=== PATIENT | male | born 1940 | race Hispanic/Latino ===

== ENCOUNTER 2018-10-14 17:51 | Emergency (ER) | payer MEDICARE ==
[2018-10-14 18:06] VITALS: TEMP 98.1; O2SAT 100; BMI 25.4
--- NOTE | 2018-10-14 18:48 | ED PDOC ---
Arrival/HPI - General Chief Complaint: High Blood Pressure Time Seen by Provider: 10/14/18 18:17 Historian: Patient - History of Present Illness Narrative History of Present Illness (Text): 10/14/18 18:43 78-year-old male with a history of hypertension presents today complaining of hypertension and low heart rate for the past 2 weeks. Patient states that 2 weeks ago he spoke with his doctor stating that he had been checking his pulse rate and it had been low. Patient states that the primary care physician told him to lower his metoprolol 50 mg to 25 mg. Patient states he tried that for a few days and did not notice an improvement so he decided to stop his metoprolol altogether. Patient states he is still taking his losartan. Patient states he finds that his blood pressure is low in the morning and gradually increases throughout the day. Patient denies chest pain or shortness of breath. He denies fevers or chills. Patient denies dizziness or weakness but states that for the past 2 months at times he has some slight lightheadedness when he goes from sitting to standing position. Patient denies nausea vomiting diarrhea or constipation. No abdominal pain. No back pain. Patient denies numbness weakness or tingling in the extremities. Patient presents today due to his concern of hypertension. Past Medical History - Provider Review Nursing Documentation Reviewed: Yes - Travel History Have you recently traveled outside [place] w/in the past 3 mons?: No - Infectious Disease Hx of Infectious Diseases: None - Cardiac Hx Cardiac Disorders: Yes Hx Hypertension: Yes - Pulmonary Hx Respiratory Disorders: No - Renal Hx Renal Disorder: No - Genitourinary/Gynecological Hx Genitourinary Disorders: No - Psychiatric Hx Psychophysiologic Disorder: No Hx Substance Use: No - Anesthesia Hx Anesthesia: No Family/Social History - Physician Review Nursing Documentation Reviewed: Yes Family/Social History: Unknown Family HX Smoking Status: Unknown If Ever Smoked Hx Alcohol Use: No Hx Substance Use: No Allergies/Home Meds Allergies/Adverse Reactions: Allergies No Known Allergies Allergy (Verified 10/14/18 18:16) Home Medications: Home Meds Medication Instructions Recorded Confirmed Hctz 0 mg PO DAILY 10/14/18 Losartan [Cozaar] 100 mg PO DAILY 10/14/18 10/14/18 Review of Systems - Review of Systems Constitutional: absent: Fatigue, Fevers ENT: absent: Sore Throat, Epistaxis Respiratory: absent: SOB, Cough Cardiovascular: absent: Chest Pain, Palpitations Gastrointestinal: absent: Abdominal Pain, Constipation, Diarrhea, Nausea, Vomiting Genitourinary Male: absent: Dysuria, Frequency, Hematuria Musculoskeletal: absent: Arthralgias, Back Pain, Neck Pain Skin: absent: Rash, Pruritis Neurological: absent: Headache, Dizziness Psychiatric: absent: Anxiety, Depression, Suicidal Ideation Physical Exam Vital Signs Reviewed: Yes Vital Signs Temp Pulse Resp BP Pulse Ox 10/14/18 18:06 98.1 F 66 18 163/91 H 100 Temperature: Afebrile Blood Pressure: Hypertensive Pulse: Regular Respiratory Rate: Normal Appearance: Positive for: Well-Appearing, Non-Toxic, Comfortable Pain Distress: None Mental Status: Positive for: Alert and Oriented X 3 - Systems Exam Head: Present: Atraumatic Mouth: Present: Moist Mucous Membranes Neck: Present: Normal Range of Motion Respiratory/Chest: Present: Clear to Auscultation, Good Air Exchange. No: Respiratory Distress, Accessory Muscle Use Cardiovascular: Present: Regular Rate and Rhythm Abdomen: No: Tenderness, Distention, Rebound, Guarding Back: Present: Normal Inspection Upper Extremity: Present: Normal ROM Lower Extremity: Present: Normal Inspection, Normal ROM, Neurovascularly Intact, Capillary Refill < 2 s. No: Edema, Tenderness, Swelling, Erythema, Deformity, Temperature Abnormalties Neurological: Present: GCS=15, Speech Normal Skin: Present: Warm, Dry, Normal Color. No: Rashes Psychiatric: Present: Alert, Oriented x 3 Medical Decision Making ED Course and Treatment: 10/14/18 18:46 78-year-old male with a history of hypertension presenting with concerns for hypertension and low heart rate. Denies chest pain shortness of breath dizziness weakness abdominal pain nausea vomiting. Patient denies any complaints at present time CBC wnl CMP wnl Troponin wnl EKG: Sinus rhythm with PVCs at 69 bpm incomplete right bundle branch block no ST elevations cxr; wnl pt reassessment; pt resting comfortably no complaints. bp; 158/88 hr; 69 I discussed all results in depth with the patient and advised follow-up with a primary care physician tomorrow. Advised follow-up with the windows application administrator within the next 2 days. Advised immediate return if the patient develops chest pain dizziness weakness nausea vomiting back pain headaches or if any concerning symptoms develop Patient verbalizes understanding of discharge instructions and need for immediate followup. All aspects of this case were discussed the attending of record. impression: HTN Follow up with the primary care physician tomorrow follow up with the Bakery Assistant within the next 2 days. return immediately if symptoms worsen,persist or if new symptoms develop. 10/14/18 19:47 - RAD Interpretation Radiology Orders: 10/14/18 18:34 CHEST PORTABLE [RAD] Stat Disposition/Present on Arrival - Present on Arrival Any Indicators Present on Arrival: No History of DVT/PE: No History of Uncontrolled Diabetes: No Urinary Catheter: No History of Decub. Ulcer: No History Surgical Site Infection Following: None - Disposition Have Diagnosis and Disposition been Completed?: Yes Diagnosis: Hypertension Disposition: HOME/ ROUTINE Disposition Time: 18:48 Patient Plan: Discharge Patient Problems: Current Active Problems Problem Status Onset Hypertension Acute Condition: GOOD Discharge Instructions (ExitCare): High Blood Pressure (DC) Additional Instructions: Follow up with the primary care physician tomorrow follow up with the Bakery Assistant within the next 2 days. return immediately if symptoms worsen,persist or if new symptoms develop. Referrals: Jude Soto MD [Primary Care Provider] - Follow up with primary Gaurang Reyes MD [Staff Provider] - Follow up with primary Forms: [employer] (T[place]isian)
[2018-10-14 19:03] LABS: BASO # 0.01 K/mm3 (0.0-2.0); BASO % 0.2 % (0.0-3.0); EOS # 0.1 (0.0-0.7); EOS % 1.5 % (1.5-5.0); HEMOGLOBIN 13.5 g/dL (14.0-18.0); LYMPH # 1.3 (1.2-3.4); MEAN CELL VOLUME 88.1 fl (80.0-105.0); MEAN CORPUSCULAR HEMOGLOBIN 29.9 pg (25.0-35.0); MEAN CORPUSCULAR HGB CONC 33.9 g/dl (31.0-37.0); MEAN PLATELET VOLUME 9.5 fl (7.0-11.0); MONO # 0.5 (0.1-0.6); MONO % 8.2 % (1.0-6.0); RBC 4.52 10^6/uL (3.5-6.1); RED CELL DISTRIBUTION WIDTH 12.6 % (11.5-14.5); WHITE BLOOD COUNT 5.5 10^3/uL (4.5-11.0)
[2018-10-14 19:14] LABS: ALB/GLOB RATIO 1.5 (1.1-1.8); ALBUMIN 4.4 g/dL (3.0-4.8); ALT/SGPT 15 U/L (7-56); AST/SGOT 23 U/L (17-59); BLOOD UREA NITROGEN 17 mg/dL (7-21); CALCIUM 10.1 mg/dL (8.4-10.5); GFR NON-AFRICAN AMERICAN 59
[2018-10-14 19:25] LABS: TROPONIN I < 0.01 ng/mL
[2018-10-14 19:48] VITALS: BP 158/88; PULSE 69; RESP 13
--- NOTE | 2018-10-15 08:27 | RAD ---
Date of service: 10/14/2018 HISTORY: htn COMPARISON: No prior. TECHNIQUE: 1 view obtained. FINDINGS: LUNGS: No active pulmonary disease. PLEURA: No significant pleural effusion identified, no pneumothorax apparent. CARDIOVASCULAR: No aortic atherosclerotic calcification present. Normal cardiac size. No pulmonary vascular congestion. OSSEOUS STRUCTURES: No significant abnormalities. VISUALIZED UPPER ABDOMEN: Normal. OTHER FINDINGS: None. IMPRESSION: No active disease.
--- NOTE | 2018-10-15 10:40 | CARD ---
APPROVED REPORT Date of service: 10/14/2018 EKG Measurement Heart [id number] <Conclusion> Sinus rhythm with frequent premature ventricular complexes Incomplete right bundle branch block Nonspecific ST abnormality Abnormal ECG
== END 2018-10-14 20:00 | disposition home or self-care (01) ==
LOC: ED 17:51
DX: I10 Essential (primary) hypertension (principal)